=== PATIENT | female | born 1990 | race African-American/Black ===

== ENCOUNTER 2021-02-17 19:19 | Emergency (ER) | payer SELFPAY ==
[~2021-02-17] VITALS: Ht 167.6 cm; Wt 70.3 kg
[2021-02-17] MEDS ORDERED: NALO4SPR NS (19:40)
[2021-02-17 21:07] VITALS: BP 157/88
== END 2021-02-17 22:10 | disposition home or self-care (01) ==
LOC: ER 19:21 → EDBD 19:21 → ER 22:10
DX: T40.411A Poisoning by fentanyl or fentanyl analogs, accidental (unintentional), initial encounter (principal); Z59.00 Homelessness unspecified; Z79.899 Other long term (current) drug therapy; Y92.89 Other specified places as the place of occurrence of the external cause